=== PATIENT | male | born 1955 | race Caucasian/White ===

== ENCOUNTER 2017-01-07 07:56 | Emergency (ER) | payer SELFPAY ==
[~2017-01-07] VITALS: Ht 170.2 cm; Wt 70.0 kg
[2017-01-07 07:57] VITALS: BP 175/100; PULSE 86; RESP 20; TEMP 98.8; O2SAT 96
[2017-01-07 08:35] VITALS: BP 138/66; PULSE 71; RESP 16; O2SAT 98
[2017-01-07] MEDS ORDERED: oxyCODONE/ACETAMINOPHEN 5 MG/325 MG TAB PO ONE ×2 (08:45→10:30)
--- NOTE | 2017-01-07 09:48 | RADRPT ---
EXAM DATE/TIME: 01/07/2017 08:41 [facility] COMPARISON: No previous studies available for comparison. INDICATIONS : Right lateral rib pain, fell MEDICAL HISTORY : None. SURGICAL HISTORY : None. ENCOUNTER: Initial ACUITY: 2 days PAIN SCORE: 9/10 LOCATION: Right Ribs FINDINGS: Acute fractures are noted involving the posterior lateral aspect of the right sixth and eighth ribs a nd probable old fracture involving the right posterior lateral fifth rib is also noted. No pneumothor ax is noted. Degenerative changes and scoliosis of the thoracolumbar spine are noted. CONCLUSION: 1. Acute fractures involving the posterior lateral aspect of the right sixth and eighth ribs. 2. No pneumothorax is noted. 3. Probable fracture involving the posterior lateral aspect of the right fifth rib. 4. Degenerative changes and scoliosis of the thoracolumbar spine. Rogers Wellington MD on January 07, 2017 at 9:43 Board Certified Radiologist. This report was verified electronically.
--- NOTE | 2017-01-07 09:58 | RADRPT ---
EXAM DATE/TIME: 01/07/2017 08:44 [facility] COMPARISON: No previous studies available for comparison. INDICATIONS : Right anterior shoulder pain, fell MEDICAL HISTORY : None. SURGICAL HISTORY : None. ENCOUNTER: Initial ACUITY: 2 days PAIN SCORE: 7/10 LOCATION: Right Shoulder FINDINGS: Mild degenerative changes involving the right acromioclavicular and glenohumeral joints are noted. Th ere is no acute fracture or dislocation. CONCLUSION: 1. No acute fracture or dislocation. 2. Mild degenerative changes involving the right glenohumeral and acromioclavicular joints. Rogers Wellington MD on January 07, 2017 at 9:47 Board Certified Radiologist. This report was verified electronically.
[2017-01-07] MEDS ORDERED: PERC5TAB12 PO (10:59)
--- NOTE | 2017-01-07 10:59 | PD ---
HPI Chief Complaint: Fall Time Seen by Provider: 08:19 Travel History International Travel<30 days: No Contact w/Intl Traveler<30days: No Traveled to known affect area: No History of Present Illness HPI Patient is a 61-year-old male comes in complaining of right sided rib pain after he fell off of his truck last night. He says that that tailgate fell and he fell out of the truck while he was unloading things. He says he landed on his right side. He complains of pain to his right ribs and his right shoulder. He says it hurts to take a deep breath. He denies hitting his head or any loss of consciousness. He denies any hip or leg pain. He denies any pain to the left side. PENDING SALE TO [facility] Past Medical History Medical History: Denies Significant Hx Respiratory: Yes Influenza Vaccination: No Past Surgical History Appendectomy: Yes Tonsillectomy: Yes Social History Alcohol Use: Yes (WINE DAILY) Tobacco Use: Yes Allergies-Medications (Allergen,Severity, Reaction): Coded Allergies: No Known Allergies (Unverified , 01/07/17) Reported Meds & Prescriptions Reported Meds & Active Scripts Active No Active Prescriptions or Reported Medications Review of Systems Except as stated in HPI: all other systems reviewed are Neg General / Constitutional: No: Fever, Chills Eyes: No: Blurred Vision HENT: No: Headaches, Lightheadedness Respiratory: Positive: Shortness of Breath Gastrointestinal: No: Nausea, Vomiting Musculoskeletal: Positive: Limited ROM, Pain, No: Edema Skin: No Rash, No Change in Pigmentation Neurologic: No: Weakness, Dizziness Physical Exam Narrative GENERAL: Awake and alert, in mild distress due to pain. SKIN: Focused skin assessment warm/dry. No open wounds. HEAD: Atraumatic. Normocephalic. EYES: Pupils equal and round. No scleral icterus. Extraocular movements intact. ENT: Mucous membranes pink and moist. NECK: Trachea midline. No JVD. No cervical spine tenderness. CARDIOVASCULAR: Regular rate and rhythm. No murmur appreciated. RESPIRATORY: No accessory muscle use. Clear to auscultation. Breath sounds equal bilaterally. GASTROINTESTINAL: Abdomen soft, non-tender, nondistended. MUSCULOSKELETAL: No obvious deformities. No clubbing. No cyanosis. No edema. No pelvic tenderness. No tenderness to the left arm or either leg. NEUROLOGICAL: Awake and alert. No obvious cranial nerve deficits. Motor grossly within normal limits. Normal speech. PSYCHIATRIC: Appropriate mood and affect; insight and judgment normal. Data Data Last Documented VS Vital Signs Date Time Temp Pulse Resp B/P (MAP) Pulse Ox O2 Delivery O2 Flow Rate FiO2 01/07/17 08:35 71 16 138/66 (90) 98 Room Air 01/07/17 07:57 98.8 Orders Orders Ribs, Uni (W/Exp Cxr-Min 3vw) (01/07/17 ) Shoulder, Complete (>2vws) (01/07/17 ) Oxycodone-Acetamin 5-325 Mg (Percocet (01/07/17 08:45) Resp Incentive Spirometry (01/07/17 ) Oxycodone-Acetamin 5-325 Mg (Percocet (01/07/17 10:30) MDM Medical Decision Making Medical Screen Exam Complete: Yes Emergency Medical Condition: Yes Differential Diagnosis Rib fractures versus shoulder fractures versus contusion Narrative Course Patient is a 61-year-old male who comes in after he fell off of his truck yesterday. Exam shows tenderness to the right lateral ribs. X-ray of the ribs and shoulder ordered. X-ray shows fracture of 2 possibly 3 ribs. There is no evidence of pneumothorax. Patient was given pain medicine. He is advised he needs to be a little take deep breaths. Given an incentive spirometer and advised her to use it. Given a prescription for pain medicine. Offered admission, but he would like to home at this time. He is advised to return any time for any worsening symptoms. Last 24 hours Impressions Shoulder X-Ray 01/07/17 0000 Signed Impressions: Service Date/Time: December 08:44 - CONCLUSION: 1. No acute fracture or dislocation. 2. Mild degenerative changes involving the right glenohumeral and acromioclavicular joints. Rogers Wellington MD Ribs X-Ray 01/07/17 0000 Signed Impressions: Service Date/Time: December 08:41 - CONCLUSION: 1. Acute fractures involving the posterior lateral aspect of the right sixth and eighth ribs. 2. No pneumothorax is noted. 3. Probable fracture involving the posterior lateral aspect of the right fifth rib. 4. Degenerative changes and scoliosis of the thoracolumbar spine. Rogers Wellington MD Diagnosis Primary Impression: Rib fractures Qualified Codes: S22.41XA - Multiple fractures of ribs, right side, initial encounter for closed fracture Patient Instructions: General Instructions, Rib Fracture (ED) Additional Instructions: Take pain medicine as needed. Use her incentive spirometer multiple times a day and make sure you're taking deep breaths. Follow-up with a primary care doctor. Return to the ED as needed for any worsening symptoms. Scripts Oxycodone-Acetaminophen (Percocet) 5-325 mg Tab 1 TAB PO Q6H Y for PAIN, #15 TAB 0 Refills Prov: Jessica Michele MD 01/07/17 Disposition: 01 DISCHARGE HOME Condition: Stable Jessica Michele MD Jan 07, 2017 10:59
== END 2017-01-07 11:29 | disposition home or self-care (01) ==
LOC: NEPE 07:56
DX: S22.41XA Multiple fractures of ribs, right side, initial encounter for closed fracture (principal); M41.9 Scoliosis, unspecified; M51.35 Other intervertebral disc degeneration, thoracolumbar region; R06.02 Shortness of breath; Z72.0 Tobacco use; W17.89XA Other fall from one level to another, initial encounter
CPT/HCPCS: 71101; 73030; 99284